=== PATIENT | male | born 1940 | race Caucasian/White ===

== ENCOUNTER → 2017-07-10 | Outpatient (CLI) | payer MEDICARE | END | disposition home or self-care (01) | LOC: CFH 10:36 | PROVIDERS: ATTEND Internal Medicine | DX: I65.23 Occlusion and stenosis of bilateral carotid arteries (principal) | CPT/HCPCS: 93880 ==

== ENCOUNTER → 2017-09-24 | Outpatient (CLI) | payer MEDICARE ==
[~2017-09-24] MED LIST: REGADENOSON 0.4 MG/5 ML SYRINGE ONE
== END | disposition home or self-care (01) ==
LOC: CFH 11:23
PROVIDERS: ATTEND Internal Medicine Cardiovascular Disease
DX: I21.19 ST elevation (STEMI) myocardial infarction involving other coronary artery of inferior wall (principal); I35.0 Nonrheumatic aortic (valve) stenosis; I10 Essential (primary) hypertension; E78.5 Hyperlipidemia, unspecified; E11.9 Type 2 diabetes mellitus without complications
CPT/HCPCS: 78452; 93017; 93306; A9502; J2785

== ENCOUNTER 2017-10-13 10:35 | Day surgery (SDC) | payer MEDICARE ==
[~2017-10-13] VITALS: Ht 190.5 cm; Wt 90.9 kg
[2017-10-13 11:45] VITALS: BP 141/83
[2017-10-13] MEDS ORDERED: METF500T5 PO (12:04)
[2017-10-13] MEDS ORDERED: ROSU20TA PO (12:04)
[2017-10-13] MEDS ORDERED: ENAL5TAB PO (12:04)
[2017-10-13] MEDS ORDERED: GABA600T2 PO (12:04)
[2017-10-13] MEDS ORDERED: OMEG-170 PO (12:04)
[2017-10-13] MEDS ORDERED: PREG150C PO (12:04)
[2017-10-13] MEDS ORDERED: ASPI-650 PO (12:04)
[2017-10-13 12:22] LABS: BASOPHILS # (AUTO) 0.03 x10^3/uL (0-0.1); BASOPHILS % (AUTO) 1 % (0-1); EOSINOPHILS # (AUTO) 0.21 x10^3/uL (0-0.4); EOSINOPHILS % (AUTO) 3 % (1-7); LYMPHOCYTES # (AUTO) 0.87 x10^3/uL (1-3.4); LYMPHOCYTES % (AUTO) 13 % (22-44); MD NO; MEAN CORPUSCULAR HEMOGLOBIN 33.1 pg (27.5-34.5); MEAN CORPUSCULAR HGB CONC 33.6 g/dL (33.2-36.2); MEAN CORPUSCULAR VOLUME 98.6 fL (81-97); MEAN PLATELET VOLUME 8.6 fL (7.4-10.4); MONOCYTES % (AUTO) 14 % (2-9); NEUTROPHILS # (AUTO) 4.48 x10^3/uL (1.8-6.8); NEUTROPHILS % (AUTO) 69 % (42-75); PLATELET COUNT 343 x10^3/uL (130-400); RED BLOOD COUNT 4.96 x10^6/uL (4.38-5.82); RED CELL DISTRIBUTION WIDTH 15.3 % (9.4-14.8)
[2017-10-13 12:27] LABS: ANION GAP 8 mmol/L (5-15); CALCIUM 8.9 mg/dL (8.5-10.1); CHLORIDE 107 mmol/L (98-107); CREATININE 0.91 mg/dL (0.7-1.3)
[2017-10-13] MEDS ORDERED: VERAPAMIL 2.5 MG/ML, 2ML ONE (12:50)
[2017-10-13] MEDS ORDERED: FENTANYL PF 100 MCG/2ML ONE (12:50)
[2017-10-13] MEDS ORDERED: TICAGRELOR 90 MG TABLET ONE (12:50)
[2017-10-13] MEDS ORDERED: BIVALIRUDIN 250 MG ONE (12:50)
[2017-10-13] MEDS ORDERED: HEPARIN 1,000 UNITS/ML, 10ML ONE (12:50)
[2017-10-13] MEDS ORDERED: MIDAZOLAM 1 MG/ML, 5ML ONE (12:50)
[2017-10-13] MEDS ORDERED: LIDOCAINE-MPF 2%, 2ML ONE (12:51)
== END 2017-10-13 16:42 | disposition home or self-care (01) ==
LOC: CACL 10:35
PROVIDERS: ATTEND Internal Medicine Cardiovascular Disease
DX: I25.10 Atherosclerotic heart disease of native coronary artery without angina pectoris (principal); E11.42 Type 2 diabetes mellitus with diabetic polyneuropathy; I10 Essential (primary) hypertension; E78.2 Mixed hyperlipidemia; K21.9 Gastro-esophageal reflux disease without esophagitis; Z79.82 Long term (current) use of aspirin; Z98.890 Other specified postprocedural states; Z79.899 Other long term (current) drug therapy
CPT/HCPCS: 36415; 80048; 85025; 93454; 99156; C1769; C1894; J1644; J2250; J3010; J3490; Q9967; J0583

== ENCOUNTER → 2017-10-28 | Outpatient (CLI) | payer MEDICARE ==
[~2017-10-28] MED LIST changes: +ASPI-650 PO; +ENAL5TAB PO; +GABA600T2 PO; +METF500T5 PO; +OMEG-170 PO; +OMNIPAQUE 350 MG/ML, 150 ML BOTTLE ONE; +PREG150C PO; -REGADENOSON 0.4 MG/5 ML SYRINGE ONE; +ROSU20TA PO
== END | disposition home or self-care (01) ==
LOC: RAD 10:32
PROVIDERS: ATTEND Internal Medicine Cardiovascular Disease
DX: I70.0 Atherosclerosis of aorta (principal); I25.10 Atherosclerotic heart disease of native coronary artery without angina pectoris; K76.0 Fatty (change of) liver, not elsewhere classified; K80.20 Calculus of gallbladder without cholecystitis without obstruction; K57.30 Diverticulosis of large intestine without perforation or abscess without bleeding; I35.0 Nonrheumatic aortic (valve) stenosis
CPT/HCPCS: 71275; 74174; 94060; 94726; 94729; Q9967

== ENCOUNTER 2017-11-11 08:01 | Inpatient (IN) | payer MEDICARE ==
[~2017-11-11] VITALS: Ht 190.5 cm; Wt 94.4 kg
[~2017-11-11 08:01] MED LIST changes: +METF500T17 PO; -METF500T5 PO; -OMNIPAQUE 350 MG/ML, 150 ML BOTTLE ONE
[2017-11-11] MEDS ORDERED: SODIUM CHLORIDE 0.9% 1,000 ML IV ONE (08:14)
[2017-11-11 08:28] VITALS: BP 146/73
[2017-11-11] MEDS ORDERED: CHLORHEXIDINE 15 ML UDC MM PRN (08:30)
[2017-11-11] MEDS ORDERED: ONDANSETRON 2MG/ML, 2ML IVPush PRN (08:30)
[2017-11-11] MEDS ORDERED: PLEASE ENTER HEIGHT AND WEIGHT MC SCH (09:00)
[2017-11-11 09:09] LABS: ALBUMIN 3.9 g/dL (3.4-5.0); ANION GAP 6 mmol/L (5-15); CALCIUM 9.1 mg/dL (8.5-10.1); CHLORIDE 106 mmol/L (98-107)
[2017-11-11] MEDS ORDERED: FENTANYL PF 250 MCG/5ML ONE (09:10)
[2017-11-11 09:11] LABS: INTERNATIONAL NORMALIZED RATIO 0.98 (0.93-1.1); PROTHROMBIN TIME 10.1 Seconds (9.6-11.5)
[2017-11-11] MEDS ORDERED: DEXAMETHASONE 4 MG/ML, 1ML ONE ×2 (09:11→09:12)
[2017-11-11] MEDS ORDERED: PROPOFOL 10 MG/ML, 20ML ONE (09:11)
[2017-11-11] MEDS ORDERED: HEPARIN 1,000 UNITS/ML, 30ML ONE (09:11)
[2017-11-11] MEDS ORDERED: ROCURONIUM 10MG/ML,5ML ONE (09:11)
[2017-11-11] MEDS ORDERED: PHENYLEPHRINE 10 MG/ML ONE (09:11)
[2017-11-11] MEDS ORDERED: ONDANSETRON ODT 8 MG ONE (09:11)
[2017-11-11] MEDS ORDERED: PROTAMINE SULFATE 10 MG/ML, 25ML ONE (09:11)
[2017-11-11] MEDS ORDERED: CEFAZOLIN 1,000 MG ONE (09:12)
[2017-11-11] MEDS ORDERED: GLYCOPYRROLATE 0.2MG/1ML, 5ML ONE (09:12)
[2017-11-11 09:14] LABS: ALANINE AMINOTRANSFERASE 22 U/L (12-78); ALKALINE PHOSPHATASE 50 U/L (45-117); BILIRUBIN,TOTAL 0.7 mg/dL (0.2-1.0); TOTAL PROTEIN 7.6 g/dL (6.4-8.2)
[2017-11-11 09:28] LABS: BASOPHILS # (AUTO) 0.07 x10^3/uL (0-0.1); BASOPHILS % (AUTO) 1 % (0-1); EOSINOPHILS # (AUTO) 0.25 x10^3/uL (0-0.4); EOSINOPHILS % (AUTO) 5 % (1-7); LYMPHOCYTES # (AUTO) 1.02 x10^3/uL (1-3.4); LYMPHOCYTES % (AUTO) 20 % (22-44); MD NO; MEAN CORPUSCULAR HGB CONC 33.2 g/dL (33.2-36.2); MEAN CORPUSCULAR VOLUME 99.4 fL (81-97); MEAN PLATELET VOLUME 9.5 fL (7.4-10.4); MONOCYTES # (AUTO) 0.84 x10^3/uL (0.2-0.8); MONOCYTES % (AUTO) 16 % (2-9); NEUTROPHILS # (AUTO) 3.03 x10^3/uL (1.8-6.8); NEUTROPHILS % (AUTO) 58 % (42-75); PLATELET COUNT 321 x10^3/uL (130-400); RED BLOOD COUNT 5.08 x10^6/uL (4.38-5.82); RED CELL DISTRIBUTION WIDTH 15.1 % (9.4-14.8)
[2017-11-11] MEDS ORDERED: CALCIUM CHLORIDE 10%, 10ML SYR ONE (10:10)
[2017-11-11] MEDS ORDERED: LABETALOL 20 MG/4 ML IVPush PRN (10:30)
[2017-11-11] MEDS ORDERED: ACETAMINOPHEN 325 MG TABLET PO PRN (10:30)
[2017-11-11] MEDS ORDERED: hydrALAzine 20 MG/ML, 1ML IVPush PRN (10:30)
[2017-11-11] MEDS: INSULIN LISPRO 100 UNITS/ML, PEN SQ-INSULIN SCH ×3 (11:20→20:47)
[2017-11-11 19:46] VITALS: BP 149/78
[2017-11-11] MEDS ORDERED: CLOPIDOGREL 300 MG TABLET PO ONE (21:00)
[2017-11-11] MEDS ORDERED: GABAPENTIN 300 MG CAPSULE PO SCH (21:00)
[2017-11-11] MEDS ORDERED: TEMPLATE NON-FORMULARY MED. (Rosuvastatin Calcium** (Crestor**) 20 MG) PO SCH (21:00)
[2017-11-11] MEDS ORDERED: PREGABALIN 150 MG CAPSULE PO SCH (21:00)
[2017-11-12 02:22] VITALS: BP 141/72
[2017-11-12 06:01] LABS: BASOPHILS # (AUTO) 0.02 x10^3/uL (0-0.1); BASOPHILS % (AUTO) 0 % (0-1); EOSINOPHILS # (AUTO) 0.01 x10^3/uL (0-0.4); EOSINOPHILS % (AUTO) 0 % (1-7); LYMPHOCYTES # (AUTO) 0.94 x10^3/uL (1-3.4); LYMPHOCYTES % (AUTO) 7 % (22-44); MD NO; MEAN CORPUSCULAR HEMOGLOBIN 33.1 pg (27.5-34.5); MEAN CORPUSCULAR HGB CONC 33.4 g/dL (33.2-36.2); MEAN CORPUSCULAR VOLUME 99.1 fL (81-97); MEAN PLATELET VOLUME 8.8 fL (7.4-10.4); MONOCYTES # (AUTO) 1.24 x10^3/uL (0.2-0.8); MONOCYTES % (AUTO) 10 % (2-9); NEUTROPHILS # (AUTO) 10.42 x10^3/uL (1.8-6.8); NEUTROPHILS % (AUTO) 83 % (42-75); PLATELET COUNT 249 x10^3/uL (130-400); RED BLOOD COUNT 4.38 x10^6/uL (4.38-5.82); RED CELL DISTRIBUTION WIDTH 14.9 % (9.4-14.8)
[2017-11-12 06:07] LABS: ALBUMIN 3.2 g/dL (3.4-5.0); ANION GAP 5 mmol/L (5-15); CHLORIDE 107 mmol/L (98-107)
[2017-11-12 06:08] LABS: CALCIUM 9.1 mg/dL (8.5-10.1); CREATININE 1.02 mg/dL (0.7-1.3)
[2017-11-12] MEDS: INSULIN LISPRO 100 UNITS/ML, PEN SQ-INSULIN SCH ×2 (07:28→12:02)
[2017-11-12 07:41] VITALS: BP 146/69
[2017-11-12] MEDS ORDERED: ENALAPRIL 5MG TABLET PO SCH (09:00)
[2017-11-12] MEDS ORDERED: CLOPIDOGREL 75 MG TABLET PO SCH (09:00)
[2017-11-12] MEDS ORDERED: ASPIRIN 81 MG TABLET EC PO SCH (09:00)
[2017-11-12] MEDS ORDERED: metFORMIN 500 MG TABLET PO SCH (09:00)
[2017-11-12] MEDS ORDERED: CLOP75TA PO (12:04)
[2017-11-12 12:44] VITALS: BP 106/49
== END 2017-11-12 13:15 | disposition home or self-care (01) | DRG 266 ==
LOC: ORIP 08:01 → CCU 10:50 → 5SO 16:26
PROVIDERS: ADMIT Internal Medicine Cardiovascular Disease; ATTEND Internal Medicine Cardiovascular Disease
PROC: B246ZZ4 Ultrasonography of Right and Left Heart, Transesophageal (ICD-10-PCS; 2017-11-11)
PROC: B3101ZZ Fluoroscopy of Thoracic Aorta using Low Osmolar Contrast (ICD-10-PCS; 2017-11-11)
PROC: 02RF38Z Replacement of Aortic Valve with Zooplastic Tissue, Percutaneous Approach (ICD-10-PCS; principal; 2017-11-11 10:00)
DX: I35.0 Nonrheumatic aortic (valve) stenosis (principal); Z00.6 Encounter for examination for normal comparison and control in clinical research program; I50.33 Acute on chronic diastolic (congestive) heart failure; E78.5 Hyperlipidemia, unspecified; I10 Essential (primary) hypertension; K21.9 Gastro-esophageal reflux disease without esophagitis; E11.42 Type 2 diabetes mellitus with diabetic polyneuropathy; E78.2 Mixed hyperlipidemia; Z79.84 Long term (current) use of oral hypoglycemic drugs
CPT/HCPCS: 33361; 36415; 80048; 80053; 82040; 82962; 85025; 85347; 85610; 86850; 86900; 86923; 87081; 93005; 93306; 93312; 93321; 93325; 93355; C1760; C1769; C1894; G0378; J0690; J1100; J1644; J2704; J2720; J3010; J3490; Q0162; J1815; J2370; Q9967

== ENCOUNTER → 2017-12-23 | Outpatient (CLI) | payer MEDICARE ==
[~2017-12-23] MED LIST changes: +CLOP75TA PO
== END | disposition home or self-care (01) ==
LOC: CVU 09:51
PROVIDERS: ATTEND Internal Medicine Cardiovascular Disease
DX: I34.0 Nonrheumatic mitral (valve) insufficiency (principal); I34.8 Other nonrheumatic mitral valve disorders; I11.9 Hypertensive heart disease without heart failure; I35.0 Nonrheumatic aortic (valve) stenosis; E78.5 Hyperlipidemia, unspecified; E11.9 Type 2 diabetes mellitus without complications
CPT/HCPCS: 93306

== ENCOUNTER 2019-08-11 08:34 | Outpatient (CLI) | payer MEDICARE ==
[~2019-08-11 08:34] MED LIST changes: -GABA600T2 PO; +GABA600T7 PO; -ROSU20TA PO; +ROSU20TA2 PO
== END 2019-08-11 23:59 | disposition home or self-care (01) ==
LOC: CFH 08:34
PROVIDERS: ATTEND Internal Medicine Cardiovascular Disease
DX: I08.8 Other rheumatic multiple valve diseases (principal)
CPT/HCPCS: 93306

== ENCOUNTER 2020-08-24 12:42 | Outpatient (CLI) | payer MEDICARE ==
[~2020-08-24 12:42] MED LIST changes: +ASPI-1026 PO; -ASPI-650 PO; -ENAL5TAB PO; +ENAL5TAB10 PO
== END 2020-08-24 23:59 | disposition home or self-care (01) ==
LOC: CFH 12:42
PROVIDERS: ATTEND Internal Medicine Cardiovascular Disease
DX: I08.8 Other rheumatic multiple valve diseases (principal)
CPT/HCPCS: 93306